=== PATIENT | female | born 2000 | race Caucasian/White ===

== ENCOUNTER 2024-09-28 14:14 | Emergency (ER) | payer MEDICAID ==
[~2024-09-28] VITALS: Ht 157.5 cm; Wt 128.8 kg
[2024-09-28 14:31] VITALS: BP 151/79; TEMP 98.9
[2024-09-28 16:03] VITALS: PULSE 76; RESP 16; O2SAT 98
== END 2024-09-28 16:14 | disposition home or self-care (01) ==
LOC: ER 14:15
DX: U07.1 COVID-19 (principal); Z88.2 Allergy status to sulfonamides
CPT/HCPCS: 36415; 87811; 99283